=== PATIENT | female | born 1970 | race Caucasian/White ===

== ENCOUNTER 2017-04-26 06:13 | Day surgery (SDC) | payer BC ==
--- NOTE | 2017-04-26 06:30 | PREOP HISTORY & PHYSICAL ---
DATE OF ADMISSION/SURGERY: 04/26/2017 HISTORY OF PRESENT ILLNESS: The patient is a 47-year-old female, 1, para 0, AB 1, whose last menstrual period was approximately 04/03. The patient has a long history of very heavy cycles; howeve r, there are regular. Endometrial biopsy showed a disordered proliferative endometrium. Treatment wit h Provera caused significant mood changes. She was offered ablation, as well as control pills o r Mirena. She has opted to just go for the ablation. ALLERGIES: CIPRO. CURRENT MEDICATIONS: Wellbutrin. PAST HISTORY: The patient has had no previous surgeries or hospital admissions. FAMILY HISTORY: Maternal aunt had ovarian cancer. Grandmother, diabetes. Mother had hypertension. Rhe umatoid arthritis in mother, father and sister and her maternal grandmother had a stroke earlier than age 65. REVIEW OF SYSTEMS RESPIRATORY: The patient has mild asthma, currently no problem. GENITOURINARY: The patient has recurrent bladder infections. PSYCHOLOGICAL: The patient has situational depression, for which she takes an antidepressant. PHYSICAL EXAMINATION HEENT: Within normal limits. NECK: No thyromegaly. LUNGS: Clear. HEART: Regular rhythm with no murmur or gallop. ABDOMEN: Soft. There are no masses or organomegaly. EXTREMITIES: Normal. NEUROLOGIC: Grossly intact. PELVIC: Introitus and vagina are normal. Cervix is grossly normal. Uterus is normal size without evid ence of fibroids. Ultrasound shows a uniformly thickened endometrium without suggestion of a polyp. T here are no palpable adnexal masses. IMPRESSION: Menorrhagia. PLAN: NovaSure ablation. The procedure and it is anticipated effects have been explained to the patie nt and she agrees to proceed. JOB #: [id number] EXT JOB #:[id number]
[2017-04-26 06:45] LABS: HCG UR QUAL NEGATIVE
[2017-04-26] MEDS ORDERED: LACTATED RINGERS 1,000 ML IV ONE ×2 (06:51→08:12)
[2017-04-26] MEDS ORDERED: ONDANSETRON 4 MG/2 ML VIAL IVP ONE (07:45)
[2017-04-26] MEDS ORDERED: LIDOCAINE-MPF 2% 5 ML VIAL IM ONE (07:45)
[2017-04-26] MEDS ORDERED: KETOROLAC 30 MG/ML VIAL IVP ONE (07:45)
[2017-04-26] MEDS ORDERED: PROPOFOL 200 MG/20 ML VIAL IVP ONE (07:45)
[2017-04-26] MEDS ORDERED: MIDAZOLAM 2 MG/2 ML VIAL IVP ONE (07:45)
[2017-04-26] MEDS ORDERED: fentaNYL 100 MCG/2 ML VIAL IVP ONE (07:45)
[2017-04-26] MEDS ORDERED: DEXAMETHASONE 4 MG/ML VIAL IVP ONE (07:45)
--- NOTE | 2017-04-26 08:26 | OPERATIVE REPORT ---
DATE OF SURGERY: 04/26/2017 00:00:00 PREOPERATIVE DIAGNOSIS: Menorrhagia. OPERATION: Endometrial ablation with NovaSure. PREOPERATIVE DIAGNOSIS: Menorrhagia. SURGEON: Ismael Botello MD. ANESTHESIA: General with an LMA. DESCRIPTION OF PROCEDURE: In the lithotomy position under general anesthesia, the perineum and vagina were prepped and draped in the usual sterile fashion. The anterior lip of the cervix was grasped wit h a single-toothed tenaculum. Attempts at negotiating the endocervical canal was difficult. The tenac ulum was then placed on the posterior lip and the canal was found with an anteflexed uterus. It was d ilated to a 5 with Tenisha dilators. The NovaSure sound was utilized to find a 6 cm endometrial cavity length. The cervix was then dilated to 8 and the NovaSure was just deployed and found to be intact an d replaced in the cylinder and placed in the uterine cavity. The instrument was deployed then and the width was established at 3. Two measurements were entered into the instrument's computer. The cervic al cone was slid into place. The test cycle was completed satisfactorily and the treatment cycle was done for approximately 90 seconds. There were no complications. The instrument was removed intact. Es timated blood loss was less than 5 mL. The patient tolerated the procedure well. JOB #: [id number] EXT JOB #:[id number]
[2017-04-26 09:17] VITALS: BP 117/72
== END 2017-04-26 06:14 | disposition home or self-care (01) ==
LOC: SDS 06:13
PROVIDERS: ATTEND Obstetrics & Gynecology
PROC: 0U5B7ZZ Destruction of Endometrium, Via Natural or Artificial Opening (ICD-10-PCS; principal; 2017-04-26 07:30)
DX: N92.4 Excessive bleeding in the premenopausal period (principal); J45.909 Unspecified asthma, uncomplicated; F32.9 Major depressive disorder, single episode, unspecified; Z80.41 Family history of malignant neoplasm of ovary; Z83.3 Family history of diabetes mellitus; Z82.3 Family history of stroke; Z82.61 Family history of arthritis
CPT/HCPCS: 58353; 81025; J7120

== ENCOUNTER 2017-06-28 07:57 | Outpatient (CLI) | payer BC ==
--- NOTE | 2017-06-29 16:08 | Mammography Report ---
DIGITAL SCREENING MAMMOGRAM: 06/28/2017 CLINICAL INDICATION: A 47-year-old nulliparous patient for screening. COMPARISON: 04/2011, 05/2009 TECHNIQUE: Routine CC and MLO projections were obtained of the breasts. FINDINGS: Scattered fibroglandular tissue is present within the breasts. There are no dominant courtney s, suspicious microcalcifications, or secondary signs of malignancy. In comparison to the previous st udies, there are no significant changes. ASSESSMENT: NO MAMMOGRAPHIC EVIDENCE OF MALIGNANCY. NO SIGNIFICANT INTERVAL CHANGES. RECOMMENDATION: Screening mammography is recommended annually. BIRADS category 1 - negative. STANDARD QUALIFYING STATEMENTS 1. This examination was reviewed with the aid of Computed-Aided Detection (CAD). 2. A negative or benign imaging report should not delay biopsy if clinically suspicious findings are present. Consider surgical consultation if warranted. More than 5% of cancers are not identified by i maging. 3. Dense breasts may obscure an underlying neoplasm. JOB #: [id number] EXT JOB #:[id number]
== END 2017-06-28 07:58 | disposition home or self-care (01) ==
LOC: DI 07:57
PROVIDERS: ATTEND Obstetrics & Gynecology
DX: Z12.39 Encounter for other screening for malignant neoplasm of breast (principal)
CPT/HCPCS: 77067

== ENCOUNTER 2017-09-03 14:02 | Emergency (ER) | payer BC ==
[2017-09-03] MEDS ORDERED: LIDOCAINE 1% 2 ML VIAL SUBQ STA (14:54)
--- NOTE | 2017-09-03 14:56 | ED Physician Documentation ---
PD HPI UPPER EXT INJURY - Stated complaint Stated Complaint: DOG BITE/LEFT HAND INJ - Chief complaint Chief Complaint: Laceration - History obtained from History obtained from: Patient, Family - History of Present Illness Location: Left, Hand Type of injury: Laceration Where injury occurred: Home Timing - onset: Today Timing - duration: Minutes Timing - details: Abrupt onset, Still present Improved by: Rest, Immobilization Worsened by: Moving, Palpating Associated symptoms: No: Weakness, Numbness, Tingling Contributing factors: No: Anticoagulated Similar symptoms before: Diagnosis (laceration) Recently seen: Not recently seen - Additonal information Additional information: 47-year-old female was giving a box of tennis balls to her dog when the dog of her brother became more aggressive to get the tennis balls and the patient was bit in the exchange.The dog that bit her is up-to-date on his immunizations and can be observed for 10 days. Review of Systems Constitutional: denies: Fever Eyes: denies: Decreased vision Ears: denies: Ear pain Nose: denies: Congestion Respiratory: denies: Cough GI: denies: Vomiting Skin: reports: Laceration (s) Musculoskeletal: reports: Extremity pain. denies: Neck pain, Back pain Neurologic: denies: Generalized weakness, Focal weakness, Numbness PD PAST MEDICAL HISTORY - Past Medical History Past Medical History: Yes Cardiovascular: None Respiratory: Asthma Endocrine/Autoimmune: None GI: None : Other HEENT: Chronic hearing loss Psych: Depression Musculoskeletal: Other Derm: None - Past Surgical History Past Surgical History: No HEENT: Other - Present Medications Home Medications: Ambulatory Orders Medication Instructions Recorded Confirmed Bupropion HCl [Wellbutrin] 300 mg PO DAILY 03/03/16 09/03/17 Amox/Clav 875/125 [Augmentin] 1 each PO Q12H #10 tablet 09/03/17 - Allergies Allergies/Adverse Reactions: Allergies Allergy/AdvReac Type Severity Reaction Status Date / Time ciprofloxacin [From Cipro] Allergy Rash Verified 09/03/17 14:07 ciprofloxacin HCl * Allergy Rash Verified 09/03/17 14:07 [From Cipro] - Social History Does the pt smoke?: Yes Smoking Status: Current every day smoker Does the pt drink ETOH?: No Does the pt have substance abuse?: No - Immunizations Immunizations are current?: Yes Immunizations: TDAP current <10years PD ED PE NORMAL - Vitals Vital signs reviewed: Yes (normal ) - General General: No acute distress, Well developed/nourished - HEENT HEENT: Atraumatic, PERRL, EOMI - Respiratory Respiratory: No respiratory distress - Derm Derm: Normal color, Warm and dry, No rash - Extremities Extremities: No deformity, No edema, Other (There is a 3cm curved flap over the dorsum of the hand over the distal 2nd metacarpal) - Neuro Neuro: No motor deficit, No sensory deficit Eye Opening: Spontaneous Motor: Obeys Commands Verbal: Oriented GCS Score: 15 - Psych Psych: Normal mood, Normal affect Results - Vitals Vitals: Vital Signs - 24 hr 09/03/17 09/03/17 14:05 15:35 Temperature 36.5 C 36.7 C Heart Rate 83 77 Respiratory 18 12 Rate Blood Pressure 129/85 H 118/84 H O2 Saturation 96 99 Oxygen O2 Source Room air Procedures - Laceration (location) left hand Length in cm: 3 Wound type: Curved, Flap Neurovascular status: Sensory intact, Motor intact, Vascular intact Anesthesia: Lidocaine 1% Wound Preparation: Hibiclens, Irrigated copiously NS, Wound explored, To the base Skin layer closure: Nylon, Interrupted, Size #-0 - enter number (4-0), Sutures - enter # (3) Other: Patient tolerated well, No complications, Neurovascular intact, Dressing applied, Tetanus UTD Complexity: Simple PD MEDICAL DECISION MAKING - ED course Complexity details: reviewed results, re-evaluated patient, considered differential, d/w patient, d/w family ED course: 47-year-old female with a dog bite wound to the left hand has a flap and does not appear to have penetration of the tissue deeper. The wound is copiously irrigated 3 sutures are placed for loose approximation and the patient is administered Augmentin 875. Departure - Departure Disposition: 01 Home, Self Care Clinical Impression: Laceration of left hand Qualifiers: Encounter type: initial encounter Foreign body presence: without foreign body Qualified Code(s): S61.412A - Laceration without foreign body of left hand, initial encounter Dog bite of hand Qualifiers: Encounter type: initial encounter Laterality: left Qualified Code(s): S61.452A - Open bite of left hand, initial encounter; W54.0XXA - Bitten by dog, initial encounter; W54.0XXA - Bitten by dog, initial encounter Condition: Stable Instructions: ED Laceration Hand Follow-Up: Reina Gonzalez PA-C [Primary Care Provider] - Prescriptions: Amox/Clav 875/125 [Augmentin] 1 each PO Q12H #10 tablet
[2017-09-03 15:36] VITALS: BP 118/84
[2017-09-03] MEDS ORDERED: AMOX/CLAV 875 MG/125 MG TABLET PO STA (15:39)
== END 2017-09-03 15:46 | disposition home or self-care (01) ==
LOC: ED 14:02
DX: S61.412A Laceration without foreign body of left hand, initial encounter (principal); W54.0XXA Bitten by dog, initial encounter; Y92.009 Unspecified place in unspecified non-institutional (private) residence as the place of occurrence of the external cause; F17.200 Nicotine dependence, unspecified, uncomplicated
CPT/HCPCS: 12002; 99283; A9270

== ENCOUNTER 2017-09-20 20:50 | Emergency (ER) | payer BC ==
[2017-09-20] MEDS ORDERED: EPINEPHrine 1 MG/ML AMP IM STA (20:59)
[2017-09-20] MEDS ORDERED: predniSONE 20 MG TABLET PO STA (21:00)
--- NOTE | 2017-09-20 21:11 | ED Physician Documentation ---
History of Present Illness - Stated complaint Stated Complaint: BITE/SWELLING - Chief complaint Chief Complaint: Allergic Rx - History obtained from History obtained from: Patient, Family - History of Present Illness Timing: How many minutes ago (45) Pain level max: 0 Pain level now: 0 Improved by: benadryl Worsened by: nothing - Additonal information Additional information: Patient states she was throwing a log onto the fire when a hibernating bee/ hornet bit/stung her. Noted swelling and rash. Took 10mg prednisone and 50mg benadryl [employer]. Has not had allergic reactions in the past. Review of Systems Constitutional: denies: Fever, Chills Ears: denies: Ear pain Nose: denies: Rhinorrhea / runny nose, Congestion Cardiac: denies: Chest pain / pressure Respiratory: denies: Cough GI: denies: Nausea, Vomiting, Diarrhea Skin: reports: Rash Neurologic: denies: Headache PD PAST MEDICAL HISTORY - Past Medical History Cardiovascular: None Respiratory: Asthma Endocrine/Autoimmune: None GI: None : Other HEENT: Chronic hearing loss Psych: Depression Musculoskeletal: Other Derm: None - Past Surgical History Past Surgical History: No HEENT: Other - Present Medications Home Medications: Ambulatory Orders Medication Instructions Recorded Confirmed Bupropion HCl [Wellbutrin] 300 mg PO DAILY 03/03/16 09/20/17 Epinephrine [Epipen 2-Lance] 0.3 mg IJ ONCE PRN #1 auto.injct 09/20/17 Fluticasone/Salmeterol [Advair 1 puffs PO DAILY 09/20/17 09/20/17 100-50 Diskus] predniSONE [Prednisone] 40 mg PO DAILY #6 tablet 09/20/17 - Allergies Allergies/Adverse Reactions: Allergies Allergy/AdvReac Type Severity Reaction Status Date / Time ciprofloxacin [From Cipro] Allergy Rash Verified 09/20/17 21:07 ciprofloxacin HCl * Allergy Rash Verified 09/20/17 21:07 [From Cipro] - Social History Does the pt smoke?: Yes Smoking Status: Current every day smoker Does the pt drink ETOH?: No Does the pt have substance abuse?: No - Immunizations Immunizations are current?: Yes Immunizations: TDAP current <10years PD ED PE NORMAL - Vitals Vital signs reviewed: Yes - General General: Alert and oriented X 3, No acute distress, Well developed/nourished - HEENT HEENT: Moist mucous membranes, Pharynx benign, Other (No stridor) - Neck Neck: Supple, no meningeal sign - Cardiac Cardiac: RRR, Strong equal pulses - Respiratory Respiratory: No respiratory distress, Clear bilaterally - Derm Derm: Warm and dry, Other (Diffuse urticaria and swelling over the trunk, left upper extremity and ears.) - Neuro Neuro: Alert and oriented X 3 Results - Vitals Vitals: Vital Signs - 24 hr 09/20/17 09/20/17 09/20/17 20:54 21:50 22:20 Temperature 36.7 C Heart Rate 106 H 86 83 Respiratory 20 18 18 Rate Blood Pressure 111/86 H 121/85 H 115/77 O2 Saturation 96 99 99 Oxygen O2 Source Room air PD MEDICAL DECISION MAKING - ED course Complexity details: re-evaluated patient, considered differential, d/w patient ED course: Patient is a 47-year-old female who presents to the emergency department after being stung by a bee versus wasp. Appears to have a mild anaphylactic reaction with diffuse urticaria, no oropharyngeal swelling. No stridor. No wheezing. Symptoms resolved with administration of epinephrine as well as prednisone. She took Benadryl prior to arrival. She was observed for an hour and a half after the epinephrine injection with no recurrence of symptoms. Will prescribe an EpiPen for home as well as steroids. Someone will stay with her tonight. Patient and family counseled regarding signs and symptoms for which I believe and urgent re-evaluation would be necessary. Patient with good understanding of and agreement to plan and is comfortable going home at this time This document was made in part using voice recognition software. While efforts are made to proofread this document, sound alike and grammatical errors may occur. Departure - Departure Disposition: Home, Self Care Clinical Impression: Allergic urticaria Condition: Good Instructions: ED Allergic Reaction General Other Follow-Up: Reina Gonzalez PA-C [Primary Care Provider] - Within 1 week Prescriptions: Epinephrine [Epipen 2-Lance] 0.3 mg IJ ONCE PRN #1 auto.injct PRN Reason: Anaphylaxis predniSONE [Prednisone] 40 mg PO DAILY #6 tablet Comments: Continue the benadryl at home for the next 24 hours. Continue the steroids for 3 days. Return if you worsen. Discharge Date/Time: 09/20/17 22:42
[2017-09-20 22:21] VITALS: BP 115/77
== END 2017-09-20 22:42 | disposition home or self-care (01) ==
LOC: ED 20:50
DX: L50.0 Allergic urticaria (principal); T63.441A Toxic effect of venom of bees, accidental (unintentional), initial encounter; F17.200 Nicotine dependence, unspecified, uncomplicated
CPT/HCPCS: 96372; 99283; 99284; J7512

== ENCOUNTER 2017-10-11 08:28 | Outpatient (CLI) | payer BC ==
[2017-10-11 13:03] LABS: BASOPHILS # (AUTO) 0.2 10^3/uL (0.0-0.1); BASOPHILS % (AUTO) 3.8 %; EOSINOPHILS # (AUTO) 0.1 10^3/uL (0.0-0.7); EOSINOPHILS % (AUTO) 2.1 %; HGB - HEMOGLOBIN 13.5 g/dL (12.0-16.0); LYMPHOCYTES # (AUTO) 1.9 10^3/uL (1.5-3.5); LYMPHOCYTES % (AUTO) 36.1 %; MEAN CORPUSCULAR HEMOGLOBIN 30.6 pg (27.0-31.0); MEAN CORPUSCULAR HGB CONC 35.5 g/dL (32.0-36.0); MEAN CORPUSCULAR VOLUME 86.4 fL (81.0-99.0); MEAN PLATELET VOLUME 6.8 fL (7.9-10.8); MONOCYTES # (AUTO) 0.3 10^3/uL (0.0-1.0); MONOCYTES % (AUTO) 5.5 %; NEUTROPHILS # (AUTO) 2.8 10^3/uL (1.5-6.6); NEUTROPHILS % (AUTO) 52.5 %; PLT - PLATELET COUNT 286 10^3/uL (130-450); RED BLOOD COUNT 4.39 10^6/uL (4.20-5.40); RED CELL DISTRIBUTION WIDTH 12.9 % (12.0-15.0); WHITE BLOOD COUNT 5.3 x10^3/uL (4.8-10.8)
[2017-10-11 13:35] LABS: ALBUMIN 3.6 g/dL (3.2-5.5); ALBUMIN/GLOBULIN RATIO 1.1 (1.0-2.2); ALKALINE PHOSPHATASE 38 IU/L (42-121); ALT ALANINE AMINOTRANSFERASE 22 IU/L (10-60); AST ASPARTATE AMINOTRANSFERASE 23 IU/L (10-42); BILIRUBIN,TOTAL 0.4 mg/dL (0.2-1.0); BUN - BLOOD UREA NITROGEN 8 mg/dL (6-20); CALCIUM 8.3 mg/dL (8.5-10.3); CARBON DIOXIDE - CO2 25 mmol/L (21-32); CHLORIDE 106 mmol/L (101-111); CREATININE 0.7 mg/dL (0.4-1.0); GFR - MDRD 89 (>89); GLUCOSE 91 mg/dL (70-100); SODIUM 136 mmol/L (135-145); TOTAL PROTEIN 6.9 g/dL (6.7-8.2)
== END 2017-10-11 08:29 | disposition home or self-care (01) ==
LOC: LAB.WCP 08:28
PROVIDERS: ATTEND Physician Assistant Medical
DX: R63.4 Abnormal weight loss (principal)
CPT/HCPCS: 36415; 80053; 84443; 85025

== ENCOUNTER 2020-07-27 09:38 | Outpatient (CLI) | payer BC | END 2020-07-27 09:39 | disposition home or self-care (01) | LOC: COV 09:38 | PROVIDERS: ATTEND Family Medicine | DX: Z20.828 Contact with and (suspected) exposure to other viral communicable diseases (principal) ==

== ENCOUNTER 2020-10-06 07:33 | Outpatient (CLI) | payer BC ==
[2020-10-06 12:01] LABS: BASOPHILS % (AUTO) 0.5 %; EOSINOPHILS # (AUTO) 0.2 10^3/uL (0.0-0.7); EOSINOPHILS % (AUTO) 3.4 %; LYMPHOCYTES # (AUTO) 2.3 10^3/uL (1.5-3.5); LYMPHOCYTES % (AUTO) 36.7 %; MEAN CORPUSCULAR HEMOGLOBIN 30.1 pg (27.0-31.0); MEAN CORPUSCULAR HGB CONC 33.1 g/dL (32.0-36.0); MEAN PLATELET VOLUME 9.3 fL (7.9-10.8); MONOCYTES # (AUTO) 0.5 10^3/uL (0.0-1.0); MONOCYTES % (AUTO) 7.3 %; NEUTROPHILS # (AUTO) 3.2 10^3/uL (1.5-6.6); NEUTROPHILS % (AUTO) 51.8 %; PLT - PLATELET COUNT 297 10^3/uL (130-450); RED BLOOD COUNT 4.65 10^6/uL (4.20-5.40); RED CELL DISTRIBUTION WIDTH 11.9 % (12.0-15.0); WHITE BLOOD COUNT 6.2 x10^3/uL (4.8-10.8)
[2020-10-06 12:49] LABS: ALBUMIN 3.8 g/dL (3.2-5.5); ALKALINE PHOSPHATASE 62 IU/L (42-121); ALT ALANINE AMINOTRANSFERASE 30 IU/L (10-60); AST ASPARTATE AMINOTRANSFERASE 24 IU/L (10-42); BILIRUBIN,TOTAL 0.5 mg/dL (0.2-1.0); BUN - BLOOD UREA NITROGEN 9 mg/dL (6-20); CALCIUM 9.1 mg/dL (8.5-10.3); CARBON DIOXIDE - CO2 26 mmol/L (21-32); CHLORIDE 105 mmol/L (101-111); CHOL/HDL RATIO 4.3 (<4.4); CHOLESTEROL 231 mg/dL; CREATININE 0.8 mg/dL (0.4-1.0); GLUCOSE 100 mg/dL (70-100); HDL CHOLESTEROL 54 mg/dL; LDL CHOLESTEROL,CALCULATED 151 mg/dL; LDL/HDL RATIO 2.8 (<4.4); TOTAL PROTEIN 7.6 g/dL (6.7-8.2); VLDL CHOLESTEROL 26 mg/dL
== END 2020-10-06 23:59 | disposition home or self-care (01) ==
LOC: LAB.WCP 07:33
PROVIDERS: ATTEND Registered Nurse
DX: D50.9 Iron deficiency anemia, unspecified (principal); F41.9 Anxiety disorder, unspecified; J45.909 Unspecified asthma, uncomplicated; Z87.448 Personal history of other diseases of urinary system
CPT/HCPCS: 36415; 80053; 80061; 83721; 84443; 85025

== ENCOUNTER 2020-10-06 08:15 | Outpatient (CLI) | payer BC ==
--- NOTE | 2020-10-07 10:27 | Mammography Report ---
BILATERAL DIGITAL SCREENING MAMMOGRAM 3D/2D: 10/06/2020 CLINICAL: Routine screening. Comparison is made to exams dated: 06/28/2017 mammogram and 05/10/2011 mammogram - [facility]. There are scattered fibroglandular elements in both breasts. No significant masses, calcifications, or other findings are seen in either breast. There has been no significant interval change. IMPRESSION: NEGATIVE There is no mammographic evidence of malignancy. A 1 year screening mammogram is recommended. This exam was interpreted at Station ID: [id number]. NOTE: For mammograms, a report in lay terms will be sent to the patient. Approximately 15% of breast malignancies will not be visualized mammographically. In the management of a palpable breast mass, a negative mammogram must not discourage biopsy of a clinically suspicious lesion. Electronically Signed By: Portillo Ernandez acr/penrad:10/06/2020 08:58:37 ACR BI-RADS Category 1: Negative 3341F PARENCHYMAL PATTERN: (A) - The breast(s) demonstrate(s) scattered fibroglandular densities. BI-RADS CATEGORY: (1) - 1 RECOMMENDATION: (ANNUAL) - Recommend routine annual screening mammography. [id number] 1 year screening LATERALITY: (B)
== END 2020-10-06 08:16 | disposition home or self-care (01) ==
LOC: DI.N 08:15
PROVIDERS: ATTEND Registered Nurse
DX: Z12.31 Encounter for screening mammogram for malignant neoplasm of breast (principal)

== ENCOUNTER 2020-11-09 06:33 | Day surgery (SDC) | payer BC ==
[2020-11-09] MEDS ORDERED: LACTATED RINGERS 1,000 ML IV ONE ×3 (07:14→08:45)
[2020-11-09] MEDS ORDERED: fentaNYL 250 MCG/5 ML VIAL ONE (07:32)
[2020-11-09] MEDS ORDERED: MIDAZOLAM 2 MG/2 ML VIAL ONE (07:32)
[2020-11-09] MEDS ORDERED: ONDANSETRON 4 MG/2 ML VIAL ONE (08:53)
[2020-11-09 09:32] VITALS: BP 125/78
== END 2020-11-09 06:34 | disposition home or self-care (01) ==
LOC: SDS 06:33
PROVIDERS: ATTEND Internal Medicine Gastroenterology
DX: Z12.11 Encounter for screening for malignant neoplasm of colon (principal); J45.909 Unspecified asthma, uncomplicated; F41.9 Anxiety disorder, unspecified
CPT/HCPCS: 45378; J3010; J7120

== ENCOUNTER 2021-06-21 16:35 | Emergency (ER) | payer BC ==
[2021-06-21 17:04] LABS: BILIRUBIN,URINE NEGATIVE (NEGATIVE); GLUCOSE, URINE (UA) NEGATIVE (NEGATIVE); KETONES,URINE (UA) TRACE mg/dL (NEGATIVE); LEUKOCYTE ESTERASE, URINE TRACE (NEGATIVE); NITRITE,URINE POSITIVE (NEGATIVE); OCCULT BLOOD,URINE LARGE (NEGATIVE); PROTEIN,URINE 100 mg/dL (NEGATIVE); UROBILINOGEN,URINE 1 (NORMAL) E.U./dL (NORMAL)
[2021-06-21 17:05] LABS: BASOPHILS % (AUTO) 0.4 %; EOSINOPHILS % (AUTO) 0.3 %; HCT - HEMATOCRIT 41.7 % (37.0-47.0); HGB - HEMOGLOBIN 14.2 g/dL (12.0-16.0); LYMPHOCYTES # (AUTO) 1.3 10^3/uL (1.5-3.5); LYMPHOCYTES % (AUTO) 11.5 %; MEAN CORPUSCULAR HEMOGLOBIN 30.5 pg (27.0-31.0); MEAN CORPUSCULAR HGB CONC 34.1 g/dL (32.0-36.0); MEAN CORPUSCULAR VOLUME 89.7 fL (81.0-99.0); MEAN PLATELET VOLUME 8.5 fL (7.9-10.8); MONOCYTES # (AUTO) 0.5 10^3/uL (0.0-1.0); MONOCYTES % (AUTO) 4.4 %; NEUTROPHILS # (AUTO) 9.5 10^3/uL (1.5-6.6); PLT - PLATELET COUNT 325 10^3/uL (130-450); RED BLOOD COUNT 4.65 10^6/uL (4.20-5.40); RED CELL DISTRIBUTION WIDTH 11.8 % (12.0-15.0); WHITE BLOOD COUNT 11.4 x10^3/uL (4.8-10.8)
[2021-06-21 17:07] LABS: CLARITY,URINE CLOUDY (CLEAR); HCG UR QUAL NEGATIVE
[2021-06-21 17:12] LABS: BACTERIA,URINE Rare /HPF (None Seen); RBC,URINE TNTC /HPF (0-5); SQUAMOUS EPITHELIAL CELL,UR RARE Squamous (<= Few)
[2021-06-21] MEDS ORDERED: HYDROmorphone 1 MG/ML CARPUJECT IM STA (17:13)
[2021-06-21] MEDS ORDERED: KETOROLAC 60 MG/2 ML VIAL IM STA (17:13)
--- NOTE | 2021-06-21 17:14 | ED Physician Documentation ---
PD HPI ABD PAIN - Stated complaint Stated Complaint: FEMALE - Chief complaint Chief Complaint: Abd Pain - History obtained from History obtained from: Patient - Additional information Additional information: 51-year-old woman had an endometrial ablation about 4 years ago and really has not had menses since. Couple of days ago developed breast tenderness and pelvic cramps and moodiness and then awoke early this morning with severe pelvic pain and vaginal bleeding about the same level as prior menses. Pain is severe. Review of Systems Ten Systems: 10 systems reviewed and negative Constitutional: reports: Reviewed and negative Nose: reports: Reviewed and negative Throat: reports: Reviewed and negative PD PAST MEDICAL HISTORY - Past Medical History Cardiovascular: None Respiratory: Asthma Endocrine/Autoimmune: None GI: None : Other HEENT: Chronic hearing loss Psych: Depression Musculoskeletal: Osteoarthritis, Other Derm: Other - Past Surgical History Past Surgical History: No /M1A1 [employer]: Endometrial ablation HEENT: Other - Present Medications Home Medications: Ambulatory Orders Medication Instructions Recorded Confirmed EPINEPHrine [Epipen 2-Lance] 0.3 mg IJ ONCE PRN #1 auto.injct 09/20/17 06/21/21 Fluticasone/Salmeterol [Advair 1 puffs PO DAILY 09/20/17 06/21/21 100-50 Diskus] Albuterol Sulf [Ventolin Hfa 1 - 2 puffs INH Q4HR PRN 11/06/20 06/21/21 Inhaler] Norethindrone Acetate [Aygestin] 0.5 tab PO DAILY #10 tablet 06/21/21 - Allergies Allergies/Adverse Reactions: Allergies Allergy/AdvReac Type Severity Reaction Status Date / Time ciprofloxacin [From Cipro] Allergy Rash Verified 06/21/21 16:42 ciprofloxacin HCl * Allergy Rash Verified 06/21/21 16:42 [From Cipro] - Social History Does the pt smoke?: Yes Smoking Status: Current every day smoker Does the pt drink ETOH?: No Does the pt have substance abuse?: No - Immunizations Immunizations are current?: Yes Immunizations: TDAP current <10years PD ED PE NORMAL - Vitals Vital signs reviewed: Yes - General General: Alert and oriented X 3, Other (She is pacing and appears uncomfortable) - Cardiac Cardiac: RRR, No murmur - Respiratory Respiratory: No respiratory distress, Clear bilaterally - Abdomen Abdomen: Normal bowel sounds, Soft, Non tender - Back Back: No CVA TTP, No spinal TTP - Neuro Neuro: Alert and oriented X 3, Normal speech Results - Vitals Vitals: Vital Signs - 24 hr 06/21/21 06/21/21 06/21/21 16:44 18:55 19:57 Temperature 36.3 C L 97.9 C H Heart Rate 72 67 57 L Respiratory 19 18 16 Rate Blood Pressure 152/92 H 158/85 H 143/82 H O2 Saturation 100 97 99 Oxygen O2 Source Room air - Labs Labs: Laboratory Tests 06/21/21 06/21/21 06/21/21 16:53 17:00 17:00 WBC 11.4 H RBC 4.65 Hgb 14.2 Hct 41.7 MCV 89.7 MCH 30.5 MCHC 34.1 RDW 11.8 L Plt Count 325 MPV 8.5 Neut # (Auto) 9.5 H Lymph # (Auto) 1.3 L [place] # (Auto) 0.5 Eos # (Auto) 0.0 Baso # (Auto) 0.0 Absolute Nucleated RBC 0.00 Nucleated RBC % 0.0 Sodium 137 Potassium 3.9 Chloride 102 Carbon Dioxide 23 Anion Gap 12.0 BUN 10 Creatinine 0.9 Estimated GFR (MDRD) 66 L Glucose 116 H Calcium 9.0 Total Bilirubin 0.5 AST 25 ALT 25 Alkaline Phosphatase 63 Total Protein 7.7 Albumin 4.3 Globulin 3.4 Albumin/Globulin Ratio 1.3 Lipase 23 Urine Color RED/BLOODY Urine Clarity CLOUDY Urine pH 5.0 Ur Specific [place] >=1.030 H Urine Protein 100 H Urine Glucose (UA) NEGATIVE Urine Ketones TRACE Urine Occult Blood LARGE H Urine Nitrite POSITIVE H Urine Bilirubin NEGATIVE Urine Urobilinogen 1 (NORMAL) Ur Leukocyte Esterase TRACE H Urine RBC TNTC H Urine WBC 4-5 Ur Squamous Epith Cells RARE Squamous Urine Bacteria Rare Ur Microscopic Review INDICATED Urine Culture Comments INDICATED Urine HCG, Qual NEGATIVE PD MEDICAL DECISION MAKING - ED course ED course: 51-year-old woman status post remote endometrial ablation presents with heavy vaginal bleeding cramps tonight. After medication she was feeling much better but developed nausea from the medicines and feeling loopy. Ultrasound showing fibroid uterus and endometrial polyp. H&H and hemodynamics are reassuring. Case was discussed by phone with our on-call footwear sales associate, Dr. Jiang. Recommended Aygestin, note we don't actually have Aygestin in house so she was given Provera tonight but Aygestin to go home with. Patient was counseled on the diagnosis and need for specialty follow-up for hysteroscopy or other intervention. Also return precautions. Departure - Departure Disposition: Home, Self Care Clinical Impression: Vaginal bleeding, Fibroid, Endometrial polyp Condition: Good Record reviewed to determine appropriate education?: Yes Instructions: ED Bleed Irregular Vaginal, ED Fibroids Follow-Up: Lorena Abad MD [Provider Admit Priv/Credential] - Prescriptions: Norethindrone Acetate [Aygestin] 0.5 tab PO DAILY #10 tablet Comments: We found today that you probably have an endometrial polyp and fibroids, both of which can cause bleeding. You can take the hormone therapy daily until the bleeding stops, then discontinue it. You do need to follow-up with a footwear sales associate for further evaluation such as hysteroscopy, call tomorrow for an appointment.
[2021-06-21 17:17] LABS: ALBUMIN 4.3 g/dL (3.2-5.5); ALBUMIN/GLOBULIN RATIO 1.3 (1.0-2.2); BILIRUBIN,TOTAL 0.5 mg/dL (0.2-1.0); CREATININE 0.9 mg/dL (0.4-1.0); POTASSIUM 3.9 mmol/L (3.5-5.0); TOTAL PROTEIN 7.7 g/dL (6.7-8.2)
--- NOTE | 2021-06-21 19:56 | Ultrasound Report ---
PROCEDURE: Pelvic w/Transvag+Doppler Comp INDICATIONS: vb/pelvic pain TECHNIQUE: Real-time scanning was performed of the pelvic organs, with image documentation. Additional endovagi nal scanning was necessary due to incomplete visualization of the adnexal and endometrial structures by transabdominal scanning. COMPARISON: None. FINDINGS: Uterus: The uterus measures 9.3 x 5.1 x 6.2 cm. The uterus is anteverted. Uterine echotexture is hete rogenous. A right lateral intramural fibroid measures 1.4 x 1.4 x 1.7 cm. A medial posterior intramur al fibroid measures 0.9 x 0.6 x 0.9 cm. The cervix has a nabothian cyst. Within the endometrium there is a tubular focus measuring 5 mm in diameter. Possibly a endometrial polyp. Ovaries: The ovaries are not well seen due to bowel gas and body habitus. The right ovary has a comp lalita cyst measuring 2.2 x 1.4 x 2.3 cm. The left ovary has a dominant follicle measuring 1.3 x 0.9 cm. Vascular flow is seen bilaterally. IMPRESSION: 1. Uterine fibroids. 2. Ovaries are not well visualized, however vascular flow is seen bilaterally. 3. Possible endometrial polyp. Recommend gynecologic referral. Reviewed by: Portillo Ernandez on 06/21/2021 7:55 PM PDT Approved by: Portillo Ernandez on 06/21/2021 7:55 PM PDT Station ID: [id number]
[2021-06-21 19:57] VITALS: BP 143/82
[2021-06-21] MEDS ORDERED: ONDANSETRON ODT 4 MG TABLET TL STA (20:17)
[2021-06-21] MEDS ORDERED: HYDROcod/ACET 5/325 Prepack 4 PO STA (20:17)
[2021-06-21] MEDS ORDERED: ONDANSETRON ODT 4 MG Prepack 2 TL STA (20:17)
== END 2021-06-21 20:36 | disposition home or self-care (01) ==
LOC: ED 16:35
DX: N93.9 Abnormal uterine and vaginal bleeding, unspecified (principal); D25.1 Intramural leiomyoma of uterus; N84.0 Polyp of corpus uteri; R11.0 Nausea; T38.5X5A Adverse effect of other estrogens and progestogens, initial encounter; Y92.238 Other place in hospital as the place of occurrence of the external cause; F17.200 Nicotine dependence, unspecified, uncomplicated
CPT/HCPCS: 36415; 76830; 76856; 80053; 81001; 81025; 83690; 85025; 87086; 93975; 96372; 99284; A9270; J1170; Q0162; 81003

== ENCOUNTER 2022-01-26 09:30 | Outpatient (CLI) | payer BC | END 2022-01-26 23:59 | disposition home or self-care (01) | LOC: LAB.S 09:30 | PROVIDERS: ATTEND Physician Assistant Medical | DX: Z20.822 Contact with and (suspected) exposure to COVID-19 (principal) ==